=== PATIENT | female | born 1960 | race Caucasian/White ===

== ENCOUNTER 2017-06-26 16:30 | Emergency (ER) | payer MEDICARE, OTHER ==
--- NOTE | ~2017-06-26 | CT71 ---
[facility]. [facility] A Service of [facility] & [facility] RADIOLOGY TEXT RESULTS PATIENT: CARLA MCDANIEL LOCATION: SED : 62 UNIT #: [id number] AGE: [address]: Addy Noe MD SEX: F ORDER DR: [id number] [address] [address] [id number] E MR#: [id number] Acc #: [id number] NAME: CARLA MCDANIEL : 1960 SEX: F STUDY DATE/TIME: 06/26/2017 17:45 UNIT: SED ROOM: STUDY DESCRIPTION: CT Head Wo Contrast Attending Physician: Addy Noe M.D. Ordering Physician: Chidi Dawson M.D. MEDICAL IMAGING REPORT This report is preliminary unless electronic signature is present. EXAM Head CT without contrast, 06/26/2017. HISTORY Patient fell to floor and started shaking this afternoon, seizure. FINDINGS Multiple axial images were obtained from the skull base to vertex without intravenous contrast administration. This CT exam was performed with one or more of the following radiation dose reduction techniques: automatic exposure control, adjustment of mA and/or kV according to patient size, and iterative reconstruction. The exam is limited by patient motion with resulting artifact. The ventricles are normal in size, shape and position. There is no midline shift. There is no mass or mass effect, hemorrhage or acute infarct. The visualized paranasal sinuses are clear. IMPRESSION Exam is limited by patient motion with resulting artifact. No gross abnormalities are identified. Dictated by... Luis Méndez M.D. THIS IS AN ELECTRONICALLY VERIFIED REPORT Luis Méndez M.D. at 06/27/2017 4:01 PM HAWA/steph TD: 06/27/2017 10:23 JOB #: [id number] MEDICAL IMAGING REPORT Page 1 of 1
--- NOTE | ~2017-06-26 | EKG ---
PATIENT: CARLA MCDANIEL UNIT #: [id number] Ventricular Rate: 90 BPM Atrial Rate: 90 BPM P-R Interval: 168 ms QRS Duration: 102 ms Q-T Interval: 426 ms QTC Calculation(Bezet): 521 ms P [place]: 48 degrees Calculated R [place]: 8 degrees Calculated T [place]: 68 degrees Diagnosis Line: Normal sinus rhythm Diagnosis Line: Nonspecific ST abnormality Diagnosis Line: Prolonged QT Diagnosis Line: Abnormal ECG Diagnosis Line: No previous ECGs available Diagnosis Line: Confirmed by TIESHA WESLEY MD ([id number]) on 06/27/2017 Diagnosis Line: 4:32:49 PM INTERPRETING MD: MARYJANE RODRIGUEZ
[~2017-06-26 16:30] MED LIST: ACIPHEX20 MG PO; ALBUTEROL17 GM INH; AMITRIPTYLINE100 MG PO; AMOXICILLIN; ATARAX PO; ATIVAN PO; BENZONATATE; BIOTIN; BUSPAR PO; CALCIUM 250+D T1 TAB; CELEBREX PO; CLARINEX5 MG PO; DULERA 100 MCG/13 GM IH; IBUPROFEN; LEXAPRO20 MG PO; LORTAB 7.5-5001 TAB; MULTI-VITAMIN1 TAB; PREMARIN; REQUIP1 MG; STAHIST TA1 TAB.SR .; SYNTHROID PO; TEGRETOL XR400 MG PO; TOPAMAX; TRAZODONE PO; VICODIN 5/500 T1 TAB PO; VIT C; VITAMIN C PO; ZOLOFT PO; [UNRECOGNIZED DRUG - OTHER]
[2017-06-26 17:35] LABS: BASOPHIL# 0.1 X10e3 (0-0.3); BASOPHIL% 1.2 % (0-2.5); EOSINOPHIL# 0.2 X10e3 (0-0.7); EOSINOPHIL% 2.1 % (0.0-7.0); HEMATOCRIT 40.4 % (35.0-45.0); HEMOGLOBIN 13.3 gm/dL (12.0-16.0); LYMPHOCYTE# 2.2 X10e3 (1.0-3.5); LYMPHOCYTE% 25.3 % (17.0-45.0); MEAN CELL VOLUME 77.5 FL (83-96); MEAN CORPUSCULAR HEMOGLOBIN 25.6 PG (28-34); MEAN PLATELET VOLUME 7.9 FL (6.5-11.5); MONOCYTE# 0.6 X10e3 (0-1.0); MONOCYTE% 6.6 % (3.0-12.0); NEUTROPHIL# 5.6 X10e3 (1.5-7.1); NEUTROPHIL% 64.8 % (40-75); PLATELET COUNT 226 X10e3 (140-420); RED BLOOD COUNT 5.21 X10e (3.90-5.30); RED CELL DISTRIBUTION WIDTH 13.2 % (11.0-15.5); WHITE BLOOD COUNT 8.7 X10e3 (4.0-10.5)
[2017-06-26 17:54] LABS: DIFF IND NO
[2017-06-26 17:55] LABS: BUN/CREATININE RATIO 12.5; CALCIUM SERUM 8.6 mg/dL (8.4-10.2); CREATININE SERUM 0.8 mg/dL (0.6-1.4); GLOM FILT RATE Estimated 83.1 mL/min (>60)
[2017-06-26 19:07] LABS: ALKALINE PHOSPHATASE 134 U/L (32-92); ALT (SGPT) 19 U/L (10-40); AST (SGOT) 18 U/L (10-42); BILIRUBIN, DIRECT <0.1 mg/dL (0.0-0.2); BILIRUBIN,INDIRECT 0.4 mg/dL (0.0-0.9); BILIRUBIN,TOTAL 0.5 mg/dL (0.2-2.0); PROTEIN TOTAL SERUM 7.3 g/dL (6.0-8.3)
[2017-06-26 19:14] LABS: MAGNESIUM 1.8 mg/dL (1.6-3.0)
[2017-06-26 19:15] LABS: ALCOHOL BLOOD <5 mg/dL (0)
[2017-06-26 19:19] LABS: POC - CKMB <1.0 ng/mL (0.0-7.9); POC - MYOGLOBIN 42.7 ng/mL (0.0-169.0); POC - TROPONIN <0.05 ng/mL (<=0.05)
[2017-06-26 19:52] LABS: URINE APPEARANCE CLEAR; URINE BILIRUBIN NEG (NEG); URINE BLOOD NEG (NEG); URINE COLOR YELLOW; URINE GLUCOSE NEG (NORM); URINE KETONE NEG (NEG); URINE LEUKOCYTE ESTERASE NEG (NEG); URINE NITRATE NEG (NEG); URINE PROTEIN NEG (NEG); URINE SOURCE CLEAN CATCH
[2017-06-26 19:54] LABS: MICRO INDICATED? NO
[2017-06-26 20:03] LABS: AMPHETAMINE NEG (NEG); BARBITURATES NEG (NEG); BENZODIAZEPINES NEG (NEG); COCAINE NEG (NEG); MARIJUANA NEG (NEG); OPIATES NEG (NEG); TRICYCLIC ANTIDEPRESSANTS POS (NEG); U METHADONE NEG (NEG)
== END 2017-06-26 21:24 | disposition home or self-care (01) ==
LOC: SED 16:30
PROVIDERS: Emergency Medicine
DX: R56.9 Unspecified convulsions (principal); F17.210 Nicotine dependence, cigarettes, uncomplicated; I45.81 Long QT syndrome; Z79.899 Other long term (current) drug therapy
CPT/HCPCS: 36415; 70450; 80048; 80076; 80156; 80307; 81003; 82553; 83735; 83874; 84484; 85025; 93005; 99285; G0480